=== PATIENT | male | born 1965 | race Caucasian/White ===

== ENCOUNTER 2018-10-26 16:35 | Emergency (ER) | payer BC ==
[2018-10-26 16:53] VITALS: BP 159/96
--- NOTE | 2018-10-26 17:08 | EDM.PDOC ---
ED HPI GENERAL MEDICAL PROBLEM - General Chief Complaint: Laceration Stated Complaint: HEAD LAC Time Seen by Provider: 10/26/18 16:42 Source of Information: Reports: Patient, Significant Other History Limitations: Reports: No Limitations - History of Present Illness INITIAL COMMENTS - FREE TEXT/NARRATIVE: 53 yo M comes in today for laceration to left top of scalp after accidentally hitting his head when standing up in his trailer. He denies blacking out/LOC, Headache, or any new onset of symptoms. The laceration has 2 separate parts, down is 2.5cm across is 2cm, making an angle. He currently has no pain and bleeding is controlled. His tetanus is UTD. No other concerns at this time. - Related Data Allergies Allergy/AdvReac Type Severity Reaction Status Date / Time allantoin Allergy Hives Verified 12/14/14 06:42 bacitracin Allergy Hives Verified 12/14/14 06:42 gramicidin D Allergy Hives Verified 12/14/14 06:42 neomycin Allergy Hives Verified 12/14/14 06:42 polymyxin B Allergy Hives Verified 12/14/14 06:42 pramoxine Allergy Hives Verified 12/14/14 06:42 silicone Allergy Hives Verified 12/14/14 06:42 sulfacetamide Allergy Hives Verified 02/23/15 13:53 Home Meds: Home Meds Methocarbamol [Robaxin] 500 mg PO ASDIRECTED 10/26/18 [History] Past Medical History Musculoskeletal History: Reports: Other (See Below) Other Musculoskeletal History: back surgery - Past Surgical History GI Surgical History: Reports: Hernia, Inguinal Social & Family History - Tobacco Use Smoking Status *Q: Former Smoker Used Tobacco, but Quit: Yes Month/Year Tobacco Last Used: 4 months - Caffeine Use Caffeine Use: Reports: Coffee - Recreational Drug Use Recreational Drug Use: No ED ROS GENERAL - Review of Systems Review Of Systems: ROS reveals no pertinent complaints other than HPI. ED EXAM, SKIN/RASH Exam: See Below (laceration to left side of scalp, total measuring 4.5cm, there is a slight divet in the center) Exam Limited By: No Limitations General Appearance: Alert, WD/WN, No Apparent Distress Eye Exam: Bilateral Eye: EOMI, Normal Inspection, PERRL Ears: Normal External Exam, Hearing Grossly Normal Nose: Normal Inspection, Normal Mucosa, No Blood Head: Normocephalic, Other (there is a laceration that measures 4.5cm in total, slight divot in center) Neurological: Alert, Oriented, CN II-XII Intact, Normal Cognition, Normal Gait, Normal Reflexes, No Motor/Sensory Deficits Psychiatric: Normal Affect, Normal Mood Skin: Warm, Dry, Wound/Incision (there is a laceration that measures 4.5cm in total, slight divot in center) Location, Skin: Head ED SKIN PROCEDURES - Laceration/Wound Repair Left Sides of Head Lac/Wound length In cm: 4.5 (The laceration has 2 separate parts, down is 2.5cm across is 2cm, making an angle) Appearance: Superficial Distal NVT: Neuro & Vascular Intact Skin Prep: Chlorhexidine (Hibiciens), Saline Exploration/Debridement/Repair: Wound Explored, Minimal Debridement Closed with: Steri-Strips Sterile Dressing Applied: Nurse Tetanus Status Addressed: Yes Complications: No Course - Vital Signs Last Recorded V/S: Last Vital Signs Temp 97.1 F 10/26/18 16:52 Pulse 65 10/26/18 16:52 Resp 20 10/26/18 16:52 BP 159/96 H 10/26/18 16:52 Pulse Ox 96 10/26/18 16:52 Departure - Departure Time of Disposition: 17:40 Disposition: Home, Self-Care 01 Condition: Good Clinical Impression: Laceration of scalp - Discharge Information *PRESCRIPTION DRUG MONITORING PROGRAM REVIEWED*: Not Applicable *COPY OF PRESCRIPTION DRUG MONITORING REPORT IN PATIENT BRENDA: Not Applicable Instructions: Head Injury, Adult, [id number]-Wzce, Laceration Care, Adult, Easy-to -Read Referrals: PCP,None [Primary Care Provider] - Forms: ED Department Discharge Additional Instructions: You were seen in the ED today for a laceration to the left side of your scalp. It was found that the wound was very superficial and did not need stitches. Your wound was cleansed and steri strips were placed with a bandage over it. It is recommended you keep the wound clean and dry. Recommend waterproof bandage over the wound to keep from getting wet. You can remove the steri strips in about 7-10 days. If they do get wet, you can try to dry them but they may peel off and need to be replaced. Please look for signs of infection such as purulent drainage, fever, increased swelling/redness, etc. Please return to ED in new or worsening symptoms.
== END 2018-10-26 17:48 | disposition home or self-care (01) ==
LOC: JD.ED 16:35
DX: S01.01XA Laceration without foreign body of scalp, initial encounter (principal); Z88.8 Allergy status to other drugs, medicaments and biological substances; Z88.1 Allergy status to other antibiotic agents; Z88.2 Allergy status to sulfonamides; Z87.891 Personal history of nicotine dependence; W22.8XXA Striking against or struck by other objects, initial encounter
CPT/HCPCS: 99282

== ENCOUNTER 2020-12-14 14:09 | Emergency (ER) | payer BC ==
[2020-12-14 14:44] VITALS: PULSE 76
--- NOTE | 2020-12-14 15:13 | EDM.PDOC ---
ED HPI GENERAL MEDICAL PROBLEM - General Chief Complaint: Upper Extremity Injury/Pain Stated Complaint: LT SHOULDER PAIN Time Seen by Provider: 12/14/20 15:00 Source of Information: Reports: Patient, Family History Limitations: Reports: No Limitations - History of Present Illness INITIAL COMMENTS - FREE TEXT/NARRATIVE: 55-year-old male presents to the ED for evaluation of left shoulder pain. He states he was out working this morning fixing a fence and fell off of one of the [place] landing hard on his left shoulder. This occurred about 0800 hrs. this morning. States pain is been gradually increasing as the morning has gone on. He is finding that he cannot abduct the arm at all from his body without severe pain. He states he has good strength in his biceps. Full pronation supination at the elbow. He denies hitting his head or losing consciousness. He has no lower body injuries. No back pain. Onset: Today, Sudden Onset Date: 12/14/20 Onset Time: 08:00 Duration: Hour(s):, Constant, Getting Worse Location: Reports: Upper Extremity, Left (Left shoulder pain) Quality: Reports: Ache ( left proximal humerus pain), Throbbing Severity: Moderate Improves with: Reports: Rest Worsens with: Reports: Other Context: Reports: Trauma (Fell off [place] on the [place] about 8 feet to the ground). Denies: Activity, Exercise (Worse with movement particularly trying to abduct from the body.), Lifting, Sick Contact Associated Symptoms: Reports: No Other Symptoms Treatments CHIEF CLINICAL DIETITIAN: Reports: NSAIDS (Motrin this morning) Left Shoulder Pain Score (Numeric/FACES): 8 - Related Data Allergies Allergy/AdvReac Type Severity Reaction Status Date / Time allantoin Allergy Hives Verified 12/14/20 14:36 bacitracin Allergy Hives Verified 12/14/20 14:36 gramicidin D Allergy Hives Verified 12/14/20 14:36 neomycin Allergy Hives Verified 12/14/20 14:36 polymyxin B Allergy Hives Verified 12/14/20 14:36 pramoxine Allergy Hives Verified 12/14/20 14:36 silicone Allergy Hives Verified 12/14/20 14:36 sulfacetamide Allergy Hives Verified 12/14/20 14:36 Home Meds: Home Meds Cholecalciferol (Vitamin D3) [Vitamin D3] 5,000 unit PO DAILY 12/14/20 [History] Multivit-Min/FA/Lycopen/Lutein [Centrum Silver Men Tablet] 1 tab PO ASDIRECTED 12/14/20 [History] Rosuvastatin [Crestor] 20 mg PO DAILY 12/14/20 [History] lisinopriL [Lisinopril] 1 tab PO ASDIRECTED 12/14/20 [History] oxyCODONE HCl/Acetaminophen [Percocet 5-325 mg Tablet] 1 - 2 each PO Q4H PRN #20 tablet 12/14/20 [Rx] Past Medical History HEENT History: Reports: Impaired Vision Cardiovascular History: Reports: High Cholesterol, Hypertension Respiratory History: Reports: None Genitourinary History: Reports: None Musculoskeletal History: Reports: Other (See Below) Other Musculoskeletal History: back surgery Neurological History: Reports: None Psychiatric History: Reports: None Endocrine/Metabolic History: Reports: None Hematologic History: Reports: None Immunologic History: Reports: None Oncologic (Cancer) History: Reports: None Dermatologic History: Reports: None - Infectious Disease History Infectious Disease History: Reports: Chicken Pox, Measles, Mumps - Past Surgical History Head Surgeries/Procedures: Reports: None HEENT Surgical History: Reports: Oral Surgery Other HEENT Surgeries/Procedures: removed growth from above left eye at age 7 GI Surgical History: Reports: Hernia, Inguinal Male Surgical History: Reports: None Social & Family History - Family History Family Medical History: No Pertinent Family History Cardiac: Reports: Heart Failure Endocrine/Metabolic: Reports: Diabetes, type II - Tobacco Use Tobacco Use Status *Q: Never Tobacco User - Caffeine Use Caffeine Use: Reports: Coffee - Recreational Drug Use Recreational Drug Use: No - Living Situation & Occupation Living situation: Reports: Occupation: Employed (Self-employed [employer]) Review of Systems - Review of Systems Review Of Systems: See Below Constitutional: Denies: Chills, Diaphoresis, Fever, Weakness Eyes: Reports: Glasses Ears: Reports: No Symptoms Nose: Reports: No Symptoms Mouth/Throat: Reports: No Symptoms Respiratory: Reports: No Symptoms Cardiovascular: Reports: No Symptoms GI/Abdominal: Reports: No Symptoms Genitourinary: Reports: Other (Frequency. Nocturia x1.) Musculoskeletal: Reports: Neck Pain (Occasional), Back Pain Skin: Reports: No Symptoms Neurological: Reports: No Symptoms Psychiatric: Reports: No Symptoms ED EXAM, GENERAL - Physical Exam Exam: See Below Exam Limited By: No Limitations General Appearance: Alert, WD/WN, Mild Distress, Other (Temperature is 37.1 degrees. Heart rate 76 and sinus. Respiratory is 18 with O2 sats of 95% room air. BP elevated 171 108. BP has come down to 150/84.) Eye Exam: Bilateral Eye: Normal Inspection, PERRL Ears: Normal TMs Throat/Mouth: Normal Inspection, Normal Lips, Normal Oropharynx Head: Atraumatic, Normocephalic Neck: Normal Inspection, Supple, Non-Tender, Full Range of Motion. No: Lymphadenopathy (L), Lymphadenopathy (R) Respiratory/Chest: No Respiratory Distress, Lungs Clear, Normal Breath Sounds, No Accessory Muscle Use, Other (Compression of his ribs and sternum gave him no pain.) Cardiovascular: Normal Peripheral Pulses, Regular Rate, Rhythm, No Edema, No Murmur, No Rub Peripheral Pulses: 2+: Radial (L), Radial (R), 3+: Carotid (L), Carotid (R) GI/Abdominal: Normal Bowel Sounds, Soft, Non-Tender, No Organomegaly, No Distention Back Exam: Normal Inspection, Full Range of Motion. No: CVA Tenderness (L), CVA Tenderness (R) Extremities: Normal Inspection, Normal Range of Motion, Non-Tender, No Pedal Edema Neurological: Alert, Oriented, CN II-XII Intact, Normal Cognition, Normal Gait Psychiatric: Normal Affect, Normal Mood Skin Exam: Warm, Dry, Intact, Normal Color, No Rash Course - Vital Signs Last Recorded V/S: Last Vital Signs Temp 37.1 C 12/14/20 14:41 Pulse 76 12/14/20 14:41 Resp 18 12/14/20 14:41 BP 171/108 H 12/14/20 14:41 Pulse Ox 95 12/14/20 14:41 - Orders/Labs/Meds Orders: Active Orders 24 hr Category Date Time Status Durable Medical Equipment for Discharge [DME for Oth 12/14/20 15:51 Ordered Discharge] [COMM] Stat - Radiology Interpretation Free Text/Narrative:: 55-year-old male presents to the ED after falling off the [place] this morning while fixing fence. He believes he fell about 8 feet to the ground landing hard on his left shoulder. This occurred about 0800 hrs. this morning. He arrives in the ED some 6 hours later complaining of increasing pain and inability to abduct the arm. He has full pronation supination at the elbow there is no obvious deformity or hematoma on palpation of the proximal humerus clavicle and AC joint appear to be intact. He does have marked pain on trying to abduct the arm away from his body. Plan x-ray of his shoulder and left humerus to be done. - Re-Assessments/Exams Free Text/Narrative Re-Assessment/Exam: 12/14/20 15;30: X-rays of the left shoulder reveal the clavicle, acromioclavicular joint and scapula to be intact. The humeral head is also intact. X-rays of the left femur reveal no fractures within the femur. There is a focal area of cortical thickening seen within the mid diaphysis of the humerus which is of unclear etiology. Cortex of this is slightly irregular and difficult to determine any obvious etiology. Plan he will be discharged home with a sling and swath for the next 12 days and then follow-up with Dr. Mccall orthopedic surgeon. Given 20 tablets of Percocet 5/325 mg strength primarily to be taken at bedtime so that he can sleep. Motrin 600 mg throughout the day. Ice pack to the area 1/2 hours of every 4 hours for the next 2 days. Departure - Departure Time of Disposition: 15:46 Disposition: Home, Self-Care 01 Condition: Fair Clinical Impression: Rotator cuff tear arthropathy of left shoulder - Discharge Information *PRESCRIPTION DRUG MONITORING PROGRAM REVIEWED*: Not Applicable *COPY OF PRESCRIPTION DRUG MONITORING REPORT IN PATIENT BRENDA: Not Applicable Prescriptions: oxyCODONE HCl/Acetaminophen [Percocet 5-325 mg Tablet] 1 - 2 each PO Q4H PRN #20 tablet PRN Reason: pain relief. Referrals: Micki Alford TRANSFER TABLE OPERATOR [Primary Care Provider] - Forms: ED Department Discharge Additional Instructions: Evaluation in the emergency room today in regards to acute injury to your left shoulder that occurred after you fell from one of the [place] this morning while fixing a fence. History suggests that you landed hard on your left shoulder. As you indicated it is painful to try and abduct or move the shoulder or arm away from your body. X-rays of the shoulder blade the collarbone and the humerus bone are negative for any fractures. There is evidence of an old fracture midshaft left humerus. Therefore current pain syndrome is secondary to rotator cuff tendon tear. There are 4 tendons that help hold our shoulder in a socket. The major one is the supraspinatus tendon that helps lift the arm up above her head. Treatment at this time is ice pack to the area 1/2-hour out of every 4 hours for the next 2 days. Immobilization of the left arm in a sling and swath until follow-up with orthopedic surgeon Dr. Mccall in about 12 days time. Please call his office at [phone] to arrange an appointment. May use Motrin 600 mg every 6 hours to reduce pain and inflammation. Stronger pain medication is Percocet 5/325 mg strength 1 or 2 tablets every 4-6 hours for pain relief. It is not recommended that you operate machinery or drive a motor vehicle while taking strong pain medication as it can impair you like alcohol. It is primarily used at bedtime so that you can get some sleep. If you need more than 4 tablets of pain medication per day they can cause constipation. It would then be recommended that you take a stool softener such as MiraLAX powder 17 g once daily which has no taste. You can mix it with any beverage of your choice to prevent constipation. Sepsis Event Note (ED) - Evaluation Sepsis Screening Result: No Definite Risk - Focused Exam Vital Signs: Vital Signs Temp Pulse Resp BP Pulse Ox 12/14/20 14:41 37.1 C 76 18 171/108 H 95 - My Orders Last 24 Hours: My Active Orders 12/14/20 15:51 Durable Medical Equipment for Discharge [DME for Discharge] [COMM] Stat - Assessment/Plan Last 24 Hours: My Active Orders 12/14/20 15:51 Durable Medical Equipment for Discharge [DME for Discharge] [COMM] Stat
--- NOTE | 2020-12-14 15:43 | CR ---
Left humerus: 2 views of the left humerus were obtained. Comparison: No prior humerus study is available. There is a focal area of cortical thickening being seen within the mid diaphysis. Cortex of this is slightly irregular and difficult to determine etiology. No discrete fracture or other bony abnormality is appreciated. Impression: 1. Focal area of cortical thickening within the mid diaphysis. As mentioned above this is nonspecific regarding etiology. Please refer to orthopedic surgeon for further evaluation. 2. Nothing acute is otherwise seen. Diagnostic code #3
--- NOTE | 2020-12-14 15:44 | CR ---
Left shoulder: 3 views of the left shoulder were obtained. Comparison: No prior shoulder study is available. Joint space narrowing is noted within the acromioclavicular joint with slight superior spurring. Glenohumeral joint is within normal limits. No acute fracture, dislocation or other bony abnormality is seen. Impression: 1. Joint space narrowing within the acromioclavicular joint with slight superior spurring. 2. Nothing acute is seen on left shoulder study. Diagnostic code #2
[2020-12-14 16:11] VITALS: BP 150/89
== END 2020-12-14 16:10 | disposition home or self-care (01) ==
LOC: JD.ED 14:09
DX: S46.012A Strain of muscle(s) and tendon(s) of the rotator cuff of left shoulder, initial encounter (principal); E78.00 Pure hypercholesterolemia, unspecified; I10 Essential (primary) hypertension; Z88.8 Allergy status to other drugs, medicaments and biological substances; Z88.2 Allergy status to sulfonamides; Z88.1 Allergy status to other antibiotic agents; Z79.899 Other long term (current) drug therapy; W17.89XA Other fall from one level to another, initial encounter
CPT/HCPCS: 73030-26-LT; 73030-LT; 73060-26-LT; 73060-LT; 99283

== ENCOUNTER 2021-01-27 06:56 | Day surgery (SDC) | payer BC ==
[~2021-01-27 06:56] MED LIST: EPINEPHrine 1 MG/ML SDV ONE; Lidocaine 1% 2 ML ONE; Lidocaine 1% 4 ML ONE; Midazolam 1 MG/ML 2 ML SDV ONE; Ondansetron 4 MG/2 ML SDV ONE; Propofol 200 MG/20 ML SDV ONE; Rocuronium 50 MG/5 ML Vial ONE; Ropivacaine 0.5% 5 MG/ML 30 ML SDV ONE; ceFAZolin 1 GM Vial ONE; fentaNYL 250 MCG/5 ML SDV ONE
[2021-01-27] MEDS ORDERED: Sodium Chloride 0.9% 10 ML Syringe FLUSH PRN (07:00)
[2021-01-27] MEDS ORDERED: Lactated Ringers 1,000 ML IV SCH (07:00)
[2021-01-27] MEDS ORDERED: Lidocaine 1%/Sod Bicarbonate in NS 8.4% 1 ML Syringe IDERM PRN (07:00)
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
--- NOTE | 2021-01-27 08:28 | PCM.SN.2 ---
- Free Text/Narrative Note: Date:.07/2020 Time out: 0800 Start time: 0800 End time: [address] left interscalene block with ultrasound guidance and nerve stimulator for post op pain control per Dr. Mccall and patient. Patient requests block even though he already has left neck pain that radiates into back and top of head. present and also agrees. Patient informed it may make neck pain worse. Wants to proceed. Patient has hiccups prior to procedure and continues after procedure. Preop diagnosis left shoulder pain. Procedure is left shoulder arthrosocpy Informed consent obtained. Monitors and O2 placed at 2 l per n/c. Versed 2 mg and Fentanyl 100 mcg given IV total. Patient awake and talking during procedure. Left neck and clavicle area prepped with chlorprep. Sterile gloves, hat and mask worn. US probe with sterile sleeve placed midclavicular with ID of brachial plexus and subclavian artery. Brachial plexus followed cephalad to level of cricoid. Lidocaine 1% local anesthetic injected prior to block placement. 22 g 2 inch stimplex needle advanced with US guidance to brachial plexus. Positive forearm response at .4mA with nerve stimulator. Ceased with saline injection. Ropivacaine 0.5% with epi 1:200,000 injected in increments of 5 ml with negative aspiration before each injection to a total of 30 ml. Good spread of local anesthetic seen on US. Patient tolerated procedure well. Vitals stable with no complaints.
[2021-01-27] MEDS ORDERED: Dexamethasone 4 MG/ML 5 ML MDV ONE (08:49)
[2021-01-27] MEDS ORDERED: Lactated Ringers 1,000 ML ONE (08:50)
[2021-01-27] MEDS ORDERED: ePHEDrine 50 MG/ML SDV ONE (08:56)
[2021-01-27] MEDS: EPINEPHrine 1 MG/ML 30 ML MDV IRR SCH ×2 (09:14→09:54)
[2021-01-27] MEDS ORDERED: Glycopyrrolate 0.2 MG/ML SDV ONE (09:27)
[2021-01-27] MEDS ORDERED: Ondansetron 4 MG/2 ML SDV IVPUSH PRN (09:29)
[2021-01-27] MEDS ORDERED: fentaNYL 100 MCG/2 ML SDV IVPUSH PRN (09:29)
[2021-01-27] MEDS ORDERED: HYDROmorphone 0.5 MG/0.5 ML Syringe IVPUSH PRN (09:29)
[2021-01-27] MEDS ORDERED: Ketorolac 30 MG/ML SDV ONE (10:19)
--- NOTE | 2021-01-27 10:46 | PCM.POSTAN ---
POST ANESTHESIA ASSESSMENT - MENTAL STATUS Mental Status: Somnolent - VITAL SIGNS Vital Signs: 103/69 78 18 97.0 94% - RESPIRATORY Respiratory Status: Respiratory Rate WNL, Airway Patent, O2 Saturation Stable, Supplemental Oxygen - CARDIOVASCULAR CV Status: Pulse Rate WNL, Blood Pressure Stable - GASTROINTESTINAL GI Status: No Symptoms - PAIN Pain Score: 0 - POST OP HYDRATION Hydration Status: Adequate & Stable
--- NOTE | 2021-01-27 12:54 | PCM48HPAN ---
Post Anesthesia Note - EVALUATION WITHIN 48HRS OF ANESTHETIC Vital Signs in Normal Range: Yes Patient Participated in Evaluation: Yes Respiratory Function Stable: Yes (Is intermittently on oxygen for low saturations. Rn will continue to monito) Airway Patent: Yes Cardiovascular Function Stable: Yes Hydration Status Stable: Yes Pain Control Satisfactory: Yes Nausea and Vomiting Control Satisfactory: Yes Mental Status Recovered: Yes Vital Signs: Last Vital Signs Temp 98.0 F 01/27/21 11:25 Pulse 78 01/27/21 11:25 Resp 13 01/27/21 11:25 BP 113/68 01/27/21 11:25 Pulse Ox 92 L 01/27/21 11:25 - COMMENTS/OBSERVATIONS Free Text/Narrative:: patient states he is sleepy. Up in evans walking. Rn will monitor ox saturations. May need to recover more fully on floor. Minimal pain.Saturations when admitted were 91-94.
[2021-01-27 14:53] VITALS: BP 121/72; PULSE 73
--- NOTE | 2021-02-02 13:29 | PCM.OPNOTE ---
- General Post-Op/Procedure Note Date of Surgery/Procedure: 01/27/21 Operative Procedure(s): left shoulder video arthroscopy with massive rotator cuff tear, subacromial decompression, biceps tenotomy, SLAP repair, and extensive debridement Pre Op Diagnosis: left shoulder rotator cuff tear with impingement and SLAP tear Post-Op Diagnosis: Same Anesthesia Technique: General ET Tube, Regional Block Primary Surgeon: Cornelio Mccall Anesthesia Provider: Elaine Esparza [employer] Teacher: Karime Fofana in mLs: 5 Complications: None Condition: Good
--- NOTE | 2021-02-08 07:25 | OR ---
DATE OF OPERATION: 01/27/2021 SURGEON: Cornelio Mccall MD OPERATION PERFORMED: Left shoulder video arthroscopy with massive rotator cuff repair, subacromial decompression, biceps tenotomy, SLAP repair, and extensive debridement. PREOPERATIVE DIAGNOSIS: Left shoulder rotator cuff tear with impingement and SLAP tear. POSTOPERATIVE DIAGNOSIS: Left shoulder rotator cuff tear with impingement and SLAP tear. ANESTHESIA: General endotracheal intubation with regional interscalene block. ANESTHESIA PROVIDER: Elaien Esparza CRNA CALL CENTER AGENT: Karime Fofana PA-C. ESTIMATED BLOOD LOSS: 5 mL. COMPLICATIONS: None. CONDITION: Stable. DESCRIPTION OF PROCEDURE: The patient was identified in the preoperative holding area. Proper site was marked and identified by surgeon. The patient was taken back to the operative theater, where after adequate anesthesia, the patient was placed in a lazy right lateral decubitus position. Wedge was placed posteriorly. The patient was secured to the table. Left upper extremity was then sterilely prepped and draped in the usual sterile fashion. OR time-out was performed. The patient received 2 g IV Ancef. At this time, 12 pounds of traction was applied to the left upper extremity. Standard posterior incision was made. Scope trocar was introduced in the glenohumeral joint. The patient was noted to have no chondromalacia. With the use of spinal needle, anterior portal was created. The patient was noted to have a significant type 2 SLAP tear with significant fraying of the biceps. At this time, a biceps tenotomy was performed and then an Arthrex 2.9 mm PushLock anchor was used for repair of the superior labral tear back to a stable rim. Subscapularis tendon was intact. The supra and infraspinatus showed a large retracted full-thickness tear at this time and debridement was done of the synovitis of the glenohumeral joint. Attention was then turned to the subacromial space. Lateral portal was created with the use of a spinal needle. At this time, a subacromial decompression was performed back to a stable border with the posterior rim. Extensive debridement was also done on the subacromial space. The patient was noted to have a large amount of scar tissue and the patient's tendon was scarred in back almost to the level of the glenoid. This made it significantly harder than normal rotator cuff repair and I did have to do releases in order to get it even to get back close to the midportion of the footprint. I did medialize the footprint with a 4.0 full- radius ralph to allow for better healing. At this time, 2 Arthrex knotless anchors were placed medially. The 12 limbs of suture then were placed anterior to posterior through the supra and infraspinatus. Six limbs of each were then taken laterally for a lateral row repair, for a double row repair both anterior and posteriorly. Tension was applied. The patient was noted to have good shinto of 3/4 of the footprint. These were then tensioned and the lateral row was placed. At this time, remaining debridement was done of any bursitis. Excess saline was drained from the shoulder. 3-0 nylon suture was used for closure of the skin. The patient had a sterile soft dressing and a pillow sling applied and was sent to the PACU in stable condition. LIZZ /[id number]
== END 2021-01-27 14:40 | disposition home or self-care (01) ==
LOC: JD.SDS 06:56
PROVIDERS: ATTEND Orthopaedic Surgery
DX: M75.122 Complete rotator cuff tear or rupture of left shoulder, not specified as traumatic (principal); S43.432A Superior glenoid labrum lesion of left shoulder, initial encounter; M25.812 Other specified joint disorders, left shoulder; I10 Essential (primary) hypertension; E78.00 Pure hypercholesterolemia, unspecified; Z88.2 Allergy status to sulfonamides; Z88.1 Allergy status to other antibiotic agents; Z88.8 Allergy status to other drugs, medicaments and biological substances
CPT/HCPCS: 29807; 29826; 29827; C1713; J0171; J0690; J1100; J1885; J2250; J2405; J2704; J2710; J2795; J3010; J3490; J7120; 01630; 64415; 76942

== ENCOUNTER 2021-11-14 09:30 | Emergency (ER) | payer BC ==
[2021-11-14] MEDS ORDERED: Diphtheria,Pertussis(Acell),Tetanus Vaccine 0.5 ML Syringe IM ONE (11:06)
[2021-11-14] MEDS ORDERED: Lidocaine 1% 10 ML MDV INJECT ONE (11:06)
[2021-11-14 12:25] VITALS: BP 118/88; PULSE 89
== END 2021-11-14 12:24 | disposition home or self-care (01) ==
LOC: JD.ED 09:30
DX: S01.01XA Laceration without foreign body of scalp, initial encounter (principal); E78.00 Pure hypercholesterolemia, unspecified; I10 Essential (primary) hypertension; Z79.82 Long term (current) use of aspirin; Z88.1 Allergy status to other antibiotic agents; Z88.8 Allergy status to other drugs, medicaments and biological substances; Z79.899 Other long term (current) drug therapy; Z72.0 Tobacco use; Z23 Encounter for immunization; W26.8XXA Contact with other sharp object(s), not elsewhere classified, initial encounter
CPT/HCPCS: 12013; 90471; 90715; 99283; 99283-25

== ENCOUNTER 2022-03-17 02:15 | Emergency (ER) | payer BC ==
[2022-03-17 02:27] VITALS: BP 121/71; PULSE 53
[2022-03-17] MEDS ORDERED: Sodium Chloride 0.9% 10 ML Syringe FLUSH PRN (02:30)
[2022-03-17] MEDS ORDERED: HYDROmorphone 0.5 MG/0.5 ML Syringe IVPUSH ONE (02:31)
[2022-03-17] MEDS ORDERED: Ondansetron 4 MG/2 ML SDV IVPUSH ONE (02:31)
== END 2022-03-17 03:40 | disposition home or self-care (01) ==
LOC: JD.ED 02:15
DX: N20.0 Calculus of kidney (principal); E78.00 Pure hypercholesterolemia, unspecified; I10 Essential (primary) hypertension; F17.210 Nicotine dependence, cigarettes, uncomplicated; Z88.1 Allergy status to other antibiotic agents; Z88.2 Allergy status to sulfonamides; Z79.82 Long term (current) use of aspirin; Z79.899 Other long term (current) drug therapy
CPT/HCPCS: 74176; 81001; 96374; 96375; 99284; J1170; J2405; J3490

== ENCOUNTER 2023-10-29 13:23 | Emergency (ER) | payer BC ==
[2023-10-29] MEDS: HYDROmorphone 1 MG/ML Syringe IM ONE (16:30)
[2023-10-29 17:14] VITALS: BP 163/112; PULSE 60
== END 2023-10-29 17:00 | disposition home or self-care (01) ==
LOC: JD.ED 13:23
DX: S82.61XA Displaced fracture of lateral malleolus of right fibula, initial encounter for closed fracture (principal); I10 Essential (primary) hypertension; E78.00 Pure hypercholesterolemia, unspecified; Z79.82 Long term (current) use of aspirin; Z88.8 Allergy status to other drugs, medicaments and biological substances; Z88.1 Allergy status to other antibiotic agents; Z79.899 Other long term (current) drug therapy; Z91.048 Other nonmedicinal substance allergy status; X50.1XXA Overexertion from prolonged static or awkward postures, initial encounter; Y93.89 Activity, other specified
CPT/HCPCS: 29515; 73610-26-RT; 73610-RT; 73630-26-RT; 73630-RT; 99283-25; 99284

== ENCOUNTER 2025-04-05 14:55 | Emergency (ER) | payer BC ==
[2025-04-05] MEDS: Ondansetron 4 MG/2 ML SDV IVPUSH ONE (16:22)
[2025-04-05] MEDS: Ketorolac 30 MG/ML SDV IVPUSH ONE (16:24)
[2025-04-05 16:25] LABS: BASOPHILS ABSOLUTE AUTO 0.1 K/mm3 (0.0-0.2); BASOPHILS PERCENT AUTO 0.9 % (0.0-1.0); EOSINOPHILS ABSOLUTE AUTO 0.1 K/mm3 (0.0-0.4); EOSINOPHILS PERCENT AUTO 1.7 % (0.0-6.0); IMMATURE GRAN ABSOLUTE AUTO 0.02 K/mm3 (0.00-0.05); IMMATURE GRAN PERCENT AUTO 0.4 % (0.0-0.4); LYMPHOCYTES ABSOLUTE AUTO 1.5 K/mm3 (1.0-4.8); LYMPHOCYTES PERCENT AUTO 28.1 % (24.0-44.0); MEAN PLATELET VOLUME 9.9 fl (9.4-12.4); MONOCYTES ABSOLUTE AUTO 0.6 K/mm3 (0.0-0.8); MONOCYTES PERCENT AUTO 11.4 % (0.0-8.0); NEUTROPHILS ABSOLUTE AUTO 3.1 K/mm3 (1.8-7.7); NEUTROPHILS PERCENT AUTO 57.5 % (41.0-71.0); NRBC ABSOLUTE 0.00 (0.00-0.02); NRBC PERCENT 0.0 % (0.0-0.2); PLATELET COUNT,PLT 201 K/mm3 (150-400); RED BLOOD CELL COUNT 4.84 M/mm3 (4.52-5.90); WHITE BLOOD CELL COUNT,WBC 5.34 K/mm3 (3.9-11.3)
[2025-04-05] MEDS: Sodium Chloride 0.9% 10 ML Syringe FLUSH PRN (16:28)
[2025-04-05 16:32] VITALS: BP 138/85; PULSE 62
[2025-04-05 16:46] LABS: A/G RATIO 1.3 (1-2); ALANINE AMINOTRANSFERASE,ALT 45.0 U/L (16-63); ASPARTATE AMNIOTRANSFERASE,AST 23.0 U/L (15-37); BILIRUBIN TOTAL 1.4 mg/dL (0.2-1.0); BLOOD UREA NITROGEN,BUN 28.0 mg/dL (7-18); CARBON DIOXIDE,CO2 28.0 mEq/L (21-32); CHLORIDE,CL 105.0 mEq/L (98-107); CREATININE 1.0 mg/dL (0.7-1.3); EST CRCL DRUG DOSING (CG) 81.11 mL/min; ESTIMATED GFR 86.0 mL/min (>60); GLUCOSE RANDOM 94.0 mg/dL (70-99); POTASSIUM,K 4.4 mEq/L (3.5-5.1); PROTEIN TOTAL,TP 6.8 g/dl (6.4-8.2); SODIUM,NA 139.0 mEq/L (136-145)
== END 2025-04-05 17:48 | disposition home or self-care (01) ==
LOC: JD.ED 14:55
DX: N20.0 Calculus of kidney (principal); I10 Essential (primary) hypertension; E78.00 Pure hypercholesterolemia, unspecified; Z79.899 Other long term (current) drug therapy; Z88.8 Allergy status to other drugs, medicaments and biological substances; Z79.82 Long term (current) use of aspirin
CPT/HCPCS: 36415; 74176; 74176-26; 80053; 83690; 85025; 96374; 96375; 99284; 99284-25; J1171; J1885; J2405; J7030